=== PATIENT | female | born 1960 | race Caucasian/White ===

== ENCOUNTER → 2023-02-08 01:06 | Outpatient (CLI) | payer MEDICARE, SELFPAY ==
--- NOTE | 2023-02-08 | DI.CTLCSR_ITS ---
Exam(s) CT CHEST LUNG CANCER SCREEN EXAM: CT CHEST LUNG CANCER SCREEN CLINICAL HISTORY: SMOKER, F17.210, SCREENING FOR LUNG CANCER TECHNIQUE: Imaging Protocol: Axial computed tomography images with coronal and sagittal reformatted images were created and reviewed. Low dose screening protocol. COMPARISON: No exams were available for comparison FINDINGS: Tracheobronchial tree: No bronchiectasis or mucus plugging.. Mediastinum and Tere: No dominant adenopathy or fluid collection. Pulmonary parenchyma: Scarring at the lung apices. 10 millimeter area of probable scarring in the me dial right upper lobe adjacent to the spine. 9 millimeter diameter nodule right upper lobe. Calcifi ed nodule left upper lobe. No infiltrate. Moderate emphysematous changes. Lung Nodules: None. Pleura: No effusion. No pneumothorax. Heart: The heart is not dilated. No coronary artery calcifications are seen. Aorta: Thoracic aorta non-dilated. Upper abdomen: Unremarkable. Bones: Unremarkable for age. Soft Tissues: Unremarkable. IMPRESSION: 9 millimeter nodule right upper lobe. Probable 10 millimeter area of scarring medial right upper lob e. PET CT could be considered for further evaluation. Lung RADS Cat 4A - Suspicious: Findings for which additional diagnostic testing and/or tissue samplin g recommended Lung-RADS 1.0 CATEGORIES: Category 0 - Prior chest CT exam(s) being located for comparison. Category 1 - Annual screening in 12 months. No nodules or definitely benign nodules. Category 2 - Annual screening in 12 months. Benign appearance. Nodules with low likelihood of becomin g active cancer. Category 3 - 6-month follow-up. Probably benign. Short-term follow-up suggested. Nodules with low lik elihood of becoming active cancer. Category 4A - 3-month follow-up and CT/PET if >8 mm in size. Suspicious finding. Findings which requi re additional testing. Category 4B - Findings which require additional testing and tissue sampling. Category 4X - Category 3 or 4 nodules with additional features or imaging findings that increases the suspicion of malignancy. Modifier S- Potentially clinically significant findings (non lung cancer) RADIATION DOSE DELIVERED: 72.25mGy.cm Total DLP DATA REPOSITORY: All CT scans at this facility are submitted to the National Radiology Data Registry (NRDR) Dose Index Registry (DIR) with the [employer] ([employer]). RADIATION OPTIMIZATION: All CT scans at this facility use at least one of these dose optimization te chniques: automated exposure control; mA and/or kV adjustment per patient size (includes targeted exa ms where dose is matched to clinical indication); or iterative reconstruction.
== END ==
PROVIDERS: PCP Nurse Practitioner Adult Health; Visit Provider Nurse Practitioner Adult Health
DX: F17.210 Nicotine dependence, cigarettes, uncomplicated (principal); Z12.2 Encounter for screening for malignant neoplasm of respiratory organs; R91.8 Other nonspecific abnormal finding of lung field
CPT/HCPCS: 71271

== ENCOUNTER → 2023-05-18 00:10 | Outpatient (CLI) | payer MEDICARE, SELFPAY ==
--- NOTE | 2023-05-18 | DI.CT_ITS ---
Exam(s) CT CHEST WO EXAM: CT CHEST WO CLINICAL HISTORY: ABNL CHEST CT FROM 02/08/23 R91.8 NODULE RUL. TECHNIQUE: Imaging protocol: Axial computed tomography images were obtained and coronal and sagittal reformatted images were created and reviewed. CONTRAST MATERIAL: Noncontrast COMPARISON: CT CT CHEST LUNG CANCER SCREEN from 02/08/2023 FINDINGS: Pulmonary parenchyma: No consolidation. Mild interval increase in size of previously noted irregular nodule in the right upper lobe. Now measuring 13 x 11 by 11 millimeters compared with 10 millimeter s on the prior exam. Stable scarring at both apices. Calcified nodule left upper lobe. Emphysema: Moderate, greater at apices. Tracheobronchial tree: No mucous plugging. No bronchiectasis . Interstitial changes: Mild. Pleura: No effusion or pneumothorax. Heart: The heart is not dilated. No coronary calcifications visible. Aorta: Thoracic aorta non-dilated. No visibleatherosclerotic changes. Lymph nodes: No enlarged lymph nodes. Bones: Scoliosis and degenerative changes are seen. No evidence of compression fracture. Upper abdomen: Unremarkable. Soft tissues: 2 x 1.1 centimeter nodule noted in the right breast. No mammograms are available for c omparison. IMPRESSION: Mild interval increase in size of previously noted nodule in the right upper lobe. Findings are susp icious for malignancy. Biopsy recommended. Right breast nodule. Recommend mammography and ultrasound of not already performed elsewhere. Unexpected findings RADIATION DOSE DELIVERED: Total DLP Total DLP DATA REPOSITORY: All CT scans at this facility are submitted to the National Radiology Data Registry (NRDR) Dose Index Registry (DIR) with the [employer] ([employer]). RADIATION OPTIMIZATION: All CT scans at this facility use at least one of these dose optimization te chniques: automated exposure control; mA and/or kV adjustment per patient size (includes targeted exa ms where dose is matched to clinical indication); or iterative reconstruction.
== END ==
PROVIDERS: PCP Nurse Practitioner Adult Health; Visit Provider Nurse Practitioner Adult Health
DX: R91.1 Solitary pulmonary nodule (principal); R92.8 Other abnormal and inconclusive findings on diagnostic imaging of breast
CPT/HCPCS: 71250

== ENCOUNTER → 2023-09-12 01:25 | Outpatient (CLI) | payer MEDICARE, SELFPAY ==
--- NOTE | 2023-09-12 07:30 | DI.US_ITS ---
Exam(s) US SOFT TISSUE HEAD OR NECK EXAM: US SOFT TISSUE HEAD OR NECK CLINICAL HISTORY: Right TR 5 lesion with THYROID NODULE,E04.1,ULTRASOUND GUIDED BX. TECHNIQUE: Ultrasound was performed using standard protocol. COMPARISON: CT,PT NM PET CT STANDARD SKULL BASE TO MID-THIGH from 06/21/2023 US from 07/04/2023 US US THYROID SOFT TISSUE from 07/04/2023 FINDINGS: Sonographic assessment utilizing grayscale and color Doppler imaging was performed and targeted to th e area of clinical concern. Was asked by ENT physician to evaluate nodule real-time while the patient was on the biopsy table. The area of previously described nodule in the inferior aspect of the right thyroid lobe which was de scribed on the recent outside ultrasound of 07/04/2023 is somewhat equivocal for the presence a a josue e nodule. No other focal findings in both lobes. IMPRESSION: As above. Recommend repeat ultrasound in 6 months. DATA REPOSITORY:
== END ==
PROVIDERS: PCP Nurse Practitioner Adult Health; Visit Provider Otolaryngology
DX: E04.1 Nontoxic single thyroid nodule (principal)
CPT/HCPCS: 76536

== ENCOUNTER 2024-03-11 00:39 | Outpatient (CLI) | payer MEDICARE, SELFPAY ==
--- NOTE | 2024-03-11 07:00 | DI.US_ITS ---
Exam(s) US THYROID EXAM: US THYROID CLINICAL HISTORY: Right-sided thyroid nodule, assess for change,E04.1. TECHNIQUE: Ultrasound thyroid performed using standard protocol. COMPARISON: CT CT CHEST LUNG CANCER SCREEN from 02/08/[address] CHEST WO from 05/18/2023 CT,PT NM PET CT STANDARD SKULL BASE TO MID-THIGH from 06/21/2023 US from 07/04/2023 US US THYROID SOFT TISSUE from 07/04/2023 US US SOFT TISSUE HEAD OR NECK from 09/12/2023 FINDINGS: Both thyroid lobes again exhibit normal size, the isthmus. Right lobe measures 1.2 cm AP x 1.2 cm wide by 4.8 cm craniocaudal Left lobe measures 1.6 cm AP x 1.5 cm wide by 4.2 cm craniocaudal Isthmus thickness is 2-3 mm. There are no nodules in the left lobe nor in the isthmus. With respect to the previously described nodule in the right lobe, it is very difficult to delineate a true nodule on ultrasound which would correspond to the focus of increased avidity in the right lob e on the PET CT scan of 06/21/2023. The closest thing that we can identify as possibly being a nodule is a mildly somewhat ill-defined sl ightly isoechoic area which appears to contain punctate echogenic foci, this being wider than taller. Classification would therefore be as follows Composition: Solid-2 points Echogenicity: Isoechoic-1 point Shape: Wider than taller-0 points Margin: Slk-wgmvxct-3 points Echogenic Foci: Punctate-3 points Total Points for this nodule: 6 ACR Ti-Rads Category: TR4 This nodule measures approximately 7 x 7 by 8 mm This finding can be followed as it measures less than 1.5 cm LYMPH NODES: There is no significant adenopathy. IMPRESSION: 1. Very subtle possible solitary nodule in the right lobe as described above, corresponding to the fo cus of increased avidity on the PET-CT scan of May 2023. This register is as a TR 4 level nodule which can be followed given that it measures less than 1.5 cm . 3. There is no significant lymphadenopathy. DATA REPOSITORY:
== END 2024-03-11 00:59 ==
LOC: DI 00:39
PROVIDERS: PCP Nurse Practitioner Adult Health; Visit Provider Otolaryngology
DX: E04.1 Nontoxic single thyroid nodule (principal)
CPT/HCPCS: 76536